=== PATIENT | female | born 1970 | race Caucasian/White ===

== ENCOUNTER → 2018-01-16 | Outpatient (CLI) | payer OTHER ==
[~2018-01-16] MED LIST: ALBUAER19 INH; BUPR-79 PO; CITA40TA12 PO; FLUT0.15 NAE; FLVHFA110 INH; LEVO1IUD2 PV; MTR600X PO; ONDA4TAB65 PO; OXYC5TAB PO; PRLSR20 PO
--- NOTE | 2018-01-16 09:29 | DIAGNOSTIC IMAGING REPORT ---
L SHOULDER MIN 2 VIEWS ROUTINE CLINICAL HISTORY: L SHOULDER DO TO FAL trauma. Pain. COMPARISON: None. DISCUSSION: The bones and joint spaces appear intact. There is no evidence of fracture, dislocation or bony disease. There is no evidence for soft tissue swelling. IMPRESSION: Negative study. The above report was generated using voice recognition software. It may contain grammatical, syntax or spelling errors. Electronically signed by: Yusuf Medeiros M.D. 01/16/2018 9:28 AM Dictated Date/Time: 01/16/2018 9:27 AM
--- NOTE | 2018-01-16 09:29 | DIAGNOSTIC IMAGING REPORT ---
R KNEE 1 OR 2 VIEWS ROUTINE CLINICAL HISTORY: R KNEE PAIN DO TO FALL trauma. Pain. COMPARISON: None. DISCUSSION: The bones and joint spaces appear intact. There is no evidence of fracture, dislocation or bony disease. There is no evidence for soft tissue swelling. IMPRESSION: Negative study. The above report was generated using voice recognition software. It may contain grammatical, syntax or spelling errors. Electronically signed by: Yusuf Medeiros M.D. 01/16/2018 9:28 AM Dictated Date/Time: 01/16/2018 9:28 AM
--- NOTE | 2018-01-16 09:30 | DIAGNOSTIC IMAGING REPORT ---
THORACIC SPINE 3 VIEWS ROUTINE HISTORY: Trauma. Pain. RIGHT KNEE AND L SHOULDER PAIN DO TO FALL COMPARISON: None. FINDINGS: There is no fracture. No subluxation. Mild degenerative disc change IMPRESSION: Mild degenerative disc change. No acute process. The above report was generated using voice recognition software. It may contain grammatical, syntax or spelling errors. Electronically signed by: Yusuf Medeiros M.D. 01/16/2018 9:29 AM Dictated Date/Time: 01/16/2018 9:28 AM
== END | disposition home or self-care (01) ==
LOC: C.LAB1850 09:08
PROVIDERS: ATTEND Nurse Practitioner Family
DX: M25.561 Pain in right knee (principal); M25.511 Pain in right shoulder; M54.6 Pain in thoracic spine; W19.XXXA Unspecified fall, initial encounter

== ENCOUNTER → 2018-02-06 | Outpatient (CLI) | payer OTHER ==
--- NOTE | 2018-02-06 07:15 | DIAGNOSTIC IMAGING REPORT ---
R LOWER EXT JOINT WITHOUT CLINICAL HISTORY: R KNEE PAIN AFTER WORK RELATED FALL TECHNIQUE: Multiaxial MRI acquisition COMPARISON STUDY: None FINDINGS: Prepatellar soft tissue edema. Signal characteristics of the osseous structures are unremarkable throughout. No significant joint effusion. Anterior and posterior cruciate are normal. Collateral ligament are intact. Patellofemoral joint appears to be unremarkable. Patellar retinaculum are intact. The menisci shows a normal configuration and signal character of both medial as well as lateral meniscus. There is no popliteal cyst. IMPRESSION: Prepatellar soft tissue edema. Otherwise negative study. The above report was generated using voice recognition software. It may contain grammatical, syntax or spelling errors. Electronically signed by: Yusuf Medeiros M.D. 02/06/2018 7:14 AM Dictated Date/Time: 02/06/2018 7:08 AM
== END | disposition home or self-care (01) ==
LOC: C.MRI 05:58
PROVIDERS: ATTEND Nurse Practitioner Family
DX: M25.561 Pain in right knee (principal); W19.XXXA Unspecified fall, initial encounter; Y99.0 Civilian activity done for income or pay

== ENCOUNTER 2021-06-25 05:22 | Inpatient (IN) ==
--- NOTE | 2021-06-08 11:32 | PAT Medication Instructions ---
Medication Instructions Date of Service June 08, 2021 Home Medications albuterol sulfate 1 - 2 inh INHALATION QID PRN omeprazole 20 mg PO QAM docusate sodium [Stool Softener] 100 mg PO BID PRN Vitamin B12 1 tab PO HS black cohosh 400 mg PO HS diphenhydramine HCl [Benadryl] 25 mg PO HS fluticasone propionate [Flonase] 2 spray INTRANASAL HS PRN ibuprofen 800 mg PO Q6H PRN meloxicam 15 mg PO HS ondansetron HCl [Zofran] 4 mg PO Q6H PRN pregabalin [Lyrica] 25 mg PO HS venlafaxine 37.5 mg PO HS ASK your surgeon for instructions ibuprofen 800 mg PO Q6H PRN meloxicam 15 mg PO HS STOP taking 2 weeks before surgery black cohosh 400 mg PO HS DO NOT take the morning of surgery docusate sodium [Stool Softener] 100 mg PO BID PRN Take morning of surgery With a small sip of water, OTHERWISE NOTHING TO EAT OR DRINK AFTER MIDNIGHT: albuterol sulfate 1 - 2 inh INHALATION QID PRN (use if needed; please bring with you to hospital day of surgery if possible) omeprazole 20 mg PO QAM ondansetron HCl [Zofran] 4 mg PO Q6H PRN (if needed) Take evening before surgery albuterol sulfate 1 - 2 inh INHALATION QID PRN (if needed) omeprazole 20 mg PO QAM docusate sodium [Stool Softener] 100 mg PO BID PRN (if needed) Vitamin B12 1 tab PO HS diphenhydramine HCl [Benadryl] 25 mg PO HS fluticasone propionate [Flonase] 2 spray INTRANASAL HS PRN (if needed) ondansetron HCl [Zofran] 4 mg PO Q6H PRN (if needed) pregabalin [Lyrica] 25 mg PO HS venlafaxine 37.5 mg PO HS Other Notes If you have any questions please call us at [phone] or [phone] or [phone] or [phone]
--- NOTE | 2021-06-12 11:45 | Anesthesiology Consultation ---
Date of Service June 12, 2021 Assessment & Plan (1) Encounter for pre-operative examination: Chart Review Chart Review: Acceptable Risk for Surgery (pending preop Covid testing results ) and Patient seen in Pre Admission Testing Per [facility] appointment 06/12/2021, pt resides and works mostly in [facility]. Works one day a week in [place]. Works in office alone. Wears mask per CDC guidelines- does wear mask in [employer]. Patient has NOT vaccinated for Covid. No known Covid infection in the past 90 days. No known Covid positive contacts or Covid related symptoms. Preop Covid testing scheduled 06/22/21= will await results. Educated on importance of self quarantining, social distancing and wearing mask in public both for the patient after Covid testing done Teaching & Discussion Pre-Anesthesia Teaching/Discussion Notes: Instructed NPO after midnight before surgery,except medications with 15 cc of water. Medication instructions prov ided according to the [facility] guidelines. History Surgery Operation Date: 06/25/21 07:45 Proposed Procedures p L4-L5 Decompression and Fusion, L5-S1 Hardware Removal, Spinal Cord Monitoring - Jeremy Morgan DO Height/Weight Height: 5 ft 7 in Weight: 72.8 kg Allergies Allergy/AdvReac Type Severity Reaction Status Date / Time latex Allergy Mild ITCHY Verified 06/08/21 08:01 HANDS WITH GLOVES gluten Allergy Unknown Gastrointestinal Verified 06/08/21 08:01 Upset morphine AdvReac Intermediate SEVERE N/V Verified 06/08/21 07:59 codeine AdvReac Mild N/V Verified 06/08/21 07:59 Medications Home Medications Medication Instructions Recorded Confirmed Last Taken albuterol sulfate 1 - 2 inh INHALATION QID PRN 09/29/19 06/08/21 09/30/19 03:00 omeprazole 20 mg PO QAM 09/29/19 06/08/21 09/29/19 20:00 docusate sodium [Stool Softener] 100 mg PO BID PRN 09/30/19 06/08/21 09/23/19 08:00 Vitamin B12 1 tab PO HS 06/08/21 06/08/21 Unknown black cohosh 400 mg PO HS 06/08/21 06/08/21 Unknown diphenhydramine HCl [Benadryl] 25 mg PO HS 06/08/21 06/08/21 Unknown fluticasone propionate [Flonase] 2 spray INTRANASAL HS PRN 06/08/21 06/08/21 Unknown ibuprofen 800 mg PO Q6H PRN 06/08/21 06/08/21 Unknown meloxicam 15 mg PO HS 06/08/21 06/08/21 Unknown ondansetron HCl [Zofran] 4 mg PO Q6H PRN 06/08/21 06/08/21 Unknown pregabalin [Lyrica] 25 mg PO HS 06/08/21 06/08/21 Unknown venlafaxine 37.5 mg PO HS 06/08/21 06/08/21 Unknown Past Medical History Medical History (Updated 06/12/21 @ 17:13 by Brittney Yanes PA-C) Anemia HX OF No iron supplements or blood tranfusion Asthma USES INHALER 2-3 X A WEEK Stable breathing Cancer BASAL CELL NOSE Cardiac murmur No murmur noted on 06/12/21 PAT exam No significant valve issues on 08/23/20 stress ECHO GERD (gastroesophageal reflux disease) Well controlle and stable History of anxiety History of herniated intervertebral disc History of IBS Migraine Neuropathy Peripheral neuropathy - L>R Exercise / Class Metabolic Activity II 4-5 Yardwork/Stairs/Walk up hill (one flight of stairs - no chest pain or SOB ) Past Family History Family History Father Family history of diabetes mellitus Family history of reaction to anesthesia SLOW TO WAKE UP Past Surgical History Surgical History Fusion of spine LUMBAR H/O foot surgery LEFT HAMMER TOE SURGERY History of breast biopsy History of cholecystectomy History of colonoscopy History of dilatation and curettage History of esophagogastroduodenoscopy (EGD) History of hysterectomy Nausea and vomiting after administration of anesthetic agent [place] teeth removed Past Anesthesia History No Hx of Anesthesia Complications (with exception PONV ) and No Family Hx of Anesthesia Complications (with exception to father- slow to wake- no reintubation or ICU stay ) History of PONV History of PONV (usually needs pred-medicated with IV anti nausea meds ) and Hx of Motion Sickness (mild ) Social History Smoking Status: Current every day smoker tobacco type: cigarettes Smoking cigarettes per day: 10 CIGS A DAY Do You Dip or Chew Tobacco: No Hx Alcohol Use: Yes Alcohol type: hard liquor alcohol intake frequency: a few times a month Alcohol Intake Frequency Comment: RARELY Hx Substance Use: No Review of Systems Nasal congestion secondary to allergies- slight cough Patient denies chest pain, shortness of breath at rest, cough, wheezing, palpitations. No hx of seizures, stroke, NV, apnea/snoring. No hx of blood clots. Physical Exam Vital Signs VITALS BP 117/76 P 70 TEMP 98.3 SP02 98% RESP 16 Constitutional no acute distress ENMT Mouth: no TMJ clicking Thyromental Distance: > or= 3.5 Finger Breadths (3.5) Mallampati Class: I Missing molars Neck neck extension not limited (pt does dizziness with neck extension ) Respiratory normal respiratory effort; no respiratory distress Auscultation: lungs clear to auscultation bilaterally and + wheezes (slight in left upper lobe ) Cardiovascular Rate/Rhythm: regular rate and regular rhythm Heart Sounds: no murmur Vessels: no carotid bruit Musculoskeletal Spine: no pain with cervical ROM Extremities: extremities normal to inspection Psychiatric Orientation: alert Lab Results Anesthesia Preop Results Results Anesthesia Widget: WBC 8.22 K/uL (4.8-10.8) 06/12/21 Hgb 11.7 g/dL (12.0-16.0) L 06/12/21 Hct 34.0 % (37-47) L 06/12/21 Plt 356 K/uL (130-400) 06/12/21 Na 138 mmol/L (136-145) 06/12/21 K 4.5 mmol/L (3.5-5.1) 06/12/21 Cl 108 mmol/L (98-107) H 06/12/21 CO2 26 mmol/L (21-32) 06/12/21 BUN 13 mg/dl (7-18) 06/12/21 Creat 0.75 mg/dl (0.6-1.2) 06/12/21 Glucose Level 92 mg/dl (70-99) 06/12/21 PT 9.3 Seconds (9.0-12.0) 06/12/21 PTT 25.7 Seconds (21.0-31.0) 06/12/21 INR 0.9 (0.9-1.1) 06/12/21 Urine Color Yellow 06/12/21 Urine Appearance Clear (Clear) 06/12/21 Urine pH 7.0 (4.5-7.5) 06/12/21 Urine Specific [place] 1.010 (1.000-1.030) 06/12/21 Urine Protein Negative (Negative) 06/12/21 Urine Glucose (UA) Negative (Negative) 06/12/21 Urine Ketones Negative (Negative) 06/12/21 Urine Blood Negative (Negative) 06/12/21 Urine Nitrite Negative (Negative) 06/12/21 Urine Bilirubin Negative (Negative) 06/12/21 Urine Urobilinogen Negative (Negative) 06/12/21 Urine Leukocyte Esterase Negative (Negative) 06/12/21 Blood Type A Negative 06/12/21 Antibody Screen NEGATIVE 06/12/21 Lab Comments: Anemia chronic and stable from 2019 Testing Electrocardiogram Date: 08/09/20 Findings: + SB @ (53bpm) Otherwise normal EKG per cardio. Chest X-Ray Date: 02/01/21 Findings: + NAD Stress Test Date: 08/23/20 Type: exercise (Echo) Resting EF: 55 to 59% Resting LV Function: normal Resting RWMA: + none Valvular Disease: no significant valvular disease Stress echo was negative for inducible ischemia. LV ejection fraction increases normally with stress. LV wall motion with stress is normal. Stress EKG response showed no evidence of ischemia. Exercise test was terminated per patient request due to fatigue and an appropriate degree of shortness of breath for the level of exercise achieved. The patient reported 4/10 severity chest tightness early in stage III of exercise it did not progress with additional exercise and was felt to be atypical in character for angina Exercise capacity is above average with the patient achieving 11.7 METS.
[2021-06-25] MEDS ORDERED: CeleBREX 200 MG CAP PO SCH (06:00)
[2021-06-25] MEDS ORDERED: GABAPENTIN 900 MG DOSE PO SCH (06:00)
[2021-06-25] MEDS ORDERED: ceFAZolin 1000MG 1,000 MG/7.5 ML SYR IV SCH (06:00)
[2021-06-25] MEDS ORDERED: ACETAMINOPHEN 500 MG TAB PO SCH (06:00)
[2021-06-25] MEDS ORDERED: LR 15ML/HR IV SCH (06:00)
[2021-06-25] MEDS ORDERED: GLYCOPYRROLATE 0.2 MG/ML VIAL ONE (06:32)
[2021-06-25] MEDS ORDERED: fentaNYL citrate 100 MCG/2 ML VIAL ONE (06:32)
[2021-06-25] MEDS ORDERED: DEXAMETHASONE SOD INJ 4 MG/ML VIAL ONE (06:32)
[2021-06-25] MEDS ORDERED: NEOSTIGMINE METHYLSULFATE 1 MG/ML 10ML VIAL ONE (06:32)
[2021-06-25] MEDS ORDERED: ONDANSETRON INJ 2 MG/ML 2 ML VIAL ONE (06:32)
[2021-06-25] MEDS ORDERED: PROPOFOL IV EMULSION 10 MG/ML 20 ML VIAL IV ONE (06:32)
[2021-06-25] MEDS ORDERED: ROCURONIUM BROMIDE 10 MG/ML 5 ML VIAL IV ONE (06:32)
[2021-06-25] MEDS ORDERED: BUPIVACAINE/EPINEPHRINE 0.5% MPF 1:200,000 30 ML VIAL ONE (07:00)
--- NOTE | 2021-06-25 07:30 | History & Physical Bridge Note ---
Date of Service June 25, 2021 History & Physical Bridge Note I have examined the patient, reviewed the History & Physical and in the interval since the performance of the History & Physical I have noted the following changes of clinical significance: no changes noted
--- NOTE | 2021-06-25 07:31 | History & Physical Report ---
Date of Service June 25, 2021 Assessment & Plan (1) Neurogenic claudication due to lumbar spinal stenosis: Plan: Lumbar decompression fusion L4-L5 with hardware removal L5-S1 History of Present Illness Chief Complaint: Back and leg pain Primary Care Provider: Reji Holt Is a 42-year-old female presents with chronic persistent back and leg pain. Failing course of nonoperative care is here for surgical invention. Home Medications Medication Instructions Recorded Confirmed Type albuterol sulfate 90 mcg/actuation 1 - 2 inh INHALATION QID PRN 09/29/19 06/25/21 History breath activated powder inhaler omeprazole 20 mg tablet,delayed 20 mg PO QAM 09/29/19 06/25/21 History release docusate sodium 100 mg capsule 100 mg PO BID PRN 09/30/19 06/25/21 History (Stool Softener) Vitamin B12 1 tab PO HS 06/08/21 06/25/21 History black cohosh 200 mg capsule 400 mg PO HS 06/08/21 06/25/21 History diphenhydramine HCl 25 mg capsule 25 mg PO HS 06/08/21 06/25/21 History (Benadryl) fluticasone propionate 50 2 spray INTRANASAL HS PRN 06/08/21 06/25/21 History mcg/actuation nasal spray,suspension ibuprofen 200 mg capsule 800 mg PO Q6H PRN 06/08/21 06/25/21 History meloxicam 15 mg tablet 15 mg PO HS 06/08/21 06/25/21 History ondansetron HCl 4 mg tablet 4 mg PO Q6H PRN 06/08/21 06/25/21 History (Zofran) pregabalin 25 mg capsule (Lyrica) 25 mg PO HS 06/08/21 06/25/21 History venlafaxine 37.5 mg tablet 37.5 mg PO HS 06/08/21 06/25/21 History Past Med/Surg History Social History Smoking Status: Current every day smoker Cigarettes Per Day: 10 CIGS A DAY; Second Hand Exposure: Yes (PARENTS SMOKED WHEN SHE WAS A CHILD); Do You Dip or Chew Tobacco: No; Hx Alcohol Use: Yes Alcohol type: hard liquor Hx Substance Use: No Preferred Language: Faroese Communication Ability: Effective Rehab Aide Required: No Beliefs That Will Affect Care: None Current Living Situation: Significant Other current occupational status: employed current occupation: [employer] Other Information That Helps Us Care for You: No Feels Safe at Home: Yes Safety Concerns: Feels Safe At This Time Assistive Devices: Glasses Physical Exam Physical Exam: Patient is alert and oriented Heart regular rhythm Lungs clear to auscultation Results & Data ([facility]) Vital Signs (Past 12 Hours) Vital Signs Temp Pulse Resp BP Pulse Ox 06/25/21 06:02 36.6 C 67 20 113/65 97
[2021-06-25] MEDS ORDERED: ePHEDrine sulfate 50 MG/ML AMP IV PRN (08:08)
[2021-06-25] MEDS ORDERED: ATROPINE SULFATE 0.1 MG/ML 10ML SYR IV PRN (08:08)
[2021-06-25] MEDS ORDERED: ONDANSETRON INJ 2 MG/ML 2 ML VIAL IV PRN ×2 (08:08→09:25)
[2021-06-25] MEDS ORDERED: HYDROmorphone INJ 2 MG/ML SYR/VIAL IV PRN (08:08)
[2021-06-25] MEDS ORDERED: PROMETHAZINE HCL 12.5 MG in SODIUM CHLORIDE 0.9% 50 ML IV PRN ×2 (08:08→09:25)
[2021-06-25] MEDS ORDERED: ALBUTEROL HFA INHALER 8.5 GM ONE (08:13)
[2021-06-25] MEDS ORDERED: PHENYLEPHRINE 100MCG/ML 5ML SYR ONE (08:21)
[2021-06-25] MEDS ORDERED: FLOSEAL HEMOSTATIC MATRIX 10ML TOP ONE (08:37)
[2021-06-25] MEDS ORDERED: diphenhydrAMINE Capsule 25 MG CAP PO PRN (09:25)
[2021-06-25] MEDS ORDERED: HYDROmorphone INJ 1 MG/ML SYRINGE IV PRN (09:25)
[2021-06-25] MEDS ORDERED: HYDROmorphone INJ 0.5 MG/0.5 ML SYR IV PRN (09:25)
[2021-06-25] MEDS ORDERED: NALOXONE HCL 0.4 MG/1 ML VIAL/CARP IV PRN (09:25)
[2021-06-25] MEDS ORDERED: ACETAMINOPHEN 1,000 MG/100 ML VIAL IV PRN (09:25)
[2021-06-25] MEDS ORDERED: LORazepam 0.5 MG TAB PO PRN (09:25)
[2021-06-25] MEDS ORDERED: ACETAMINOPHEN 500 MG TAB PO PRN (09:25)
[2021-06-25] MEDS ORDERED: SOD PHOSPHATE/SOD BIPHOSPHATE ENEMA 132 ML BTL PR PRN (09:25)
[2021-06-25] MEDS ORDERED: FAMOTIDINE 20 MG TAB PO PRN (09:25)
[2021-06-25] MEDS ORDERED: hydrOXYzine HCl 25 MG TAB PO PRN (09:25)
[2021-06-25] MEDS ORDERED: ONDANSETRON 4 MG OD TAB PO PRN ×2 (09:25→10:14)
[2021-06-25] MEDS ORDERED: ALUMINUM/MAGNESIUM SUSP 30 ML UDC PO PRN (09:25)
[2021-06-25] MEDS ORDERED: MAGNESIUM HYDROXIDE SUSP 30 ML UDC PO PRN (09:25)
[2021-06-25] MEDS ORDERED: DO NOT ADMINISTER PNEUMOCOCCAL VACCINE PRN (09:25)
[2021-06-25] MEDS ORDERED: DO NOT ADMINISTER FLU VACCINE PRN (09:25)
[2021-06-25] MEDS ORDERED: LORazepam 0.5 MG/1 ML VIAL IV PRN (09:25)
[2021-06-25] MEDS ORDERED: traMADol HCL 50 MG TABLET PO PRN (09:25)
[2021-06-25] MEDS ORDERED: METOCLOPRAMIDE HCL INJ 5 MG/ML 2 ML VIAL IV PRN (09:25)
--- NOTE | 2021-06-25 09:25 | Operative Report ---
Post Operative Report Pre & Post Diagnosis Operation Date: 06/25/21 07:45 Pre-Op Diagnosis: Intervertebral Disc Disorders with Radiculopathy Post-Op Diagnosis: Intervertebral Disc Disorders with Radiculopathy I identified the patient and participated in the time-out.: Yes Procedure Operation Date: 06/25/21 07:45 Actual Procedures #1 Removal of posterior instrumentation L5-S1. #2 exploration of fusion L5-S1. #3 lumbar decompression with bilateral medial facetectomies and foraminotomies L4-L5. #4 posterior spinal fusion L4-5. #5 patient posterior instrumentation L4-5. #6 interbody fusion L4-L5. #7 placement peek cage 12 x 22 mm at L4-5. #8 placement locally harvested morselized autograft in the posterior lateral gutters. #9 placement of I factor with vitoss in the interbody space and posterior lateral gutters. Surgeon Jeremy Morgan, Cost Accounting Analyst Joanna Lowery Estimated Blood Loss 100 Findings Consistent with Post-Op Diagnosis Specimens None Indications This is a 50-year-old female well-known to me the presents with above-mentioned diagnosis after failing course of nonoperative care is here for the above-ment ioned procedure. Description of Procedure Patient met with identified informed consent obtained. Patient was then taken to the operative suite underwent ablation placed in a prone position on a Kiko table top Cl frame. All bony prominences well-padded eyes inspected to ensure no external pressure placed upon them. This point the lumbar spine was prepped and draped in a sterile fashion. Sharp dissection with the assistance of Bovie cartilage from down to and exposing the lamina and transverse processes of L4 and the instrumentation L5 and S1 levels bilaterally. And then proceeded move the hardware bilaterally with the fusion mass noting it to be intact. Then performed a complete laminectomy of L4 including bilateral medial facetectomies and foraminotomies addressing all neural compression. Pedicle screws were then placed in L4 and L5 bilaterally with assistance of fluoroscopy and appropriate sized yodit placed. By way of a transforaminal approach on the left complete discectomy was performed endplates curetted to subcortically bone and a 10 x 22 mm peek cage filled with I factor tapped in position. Rods then compressed locked into final position bilaterally. The transverse processes of L4 and L5 burred to subcortical bleeding bone. I factor combined with Vitoss locally harvested morselized autograft was placed in the posterior gutters. 15 round DELFINO drain inserted. Incision was then closed with 1 Vicryl fascia 2-0 Vicryl subcutaneously and 4 Monocryl for final skin closure. Steri-Strip sterile dressings placed. Patient waken taken to PACU stable condition. Please note spinal cord monitoring was utilized at the procedure no changes noted. Lastly Joanna Lowery was present at the entire surgery and while the patient positioning complex portions of the surgery and vascular closure. I attest to the content of the Intraoperative Record and any orders documented therein. Any exceptions are noted below.
[2021-06-25] MEDS ORDERED: DOCUSATE SODIUM 100 MG CAP PO PRN (09:28)
[2021-06-25] MEDS ORDERED: FLUTICASONE PROPIONATE NA SPR 16 GM BTL PRN (09:28)
[2021-06-25] MEDS: fentaNYL citrate 100 MCG/2 ML VIAL IV PRN ×2 (09:46→09:56)
--- NOTE | 2021-06-25 10:04 | Fluoroscopy Report ---
FL lumbar spine 2-3V CLINICAL HISTORY: L4-L5 DECOMPRESSION AND FUSION L5-S1 HW REMOVAL COMPARISON STUDY: None. FLUOROSCOPY TIME: 13 seconds. FINDINGS: 2 fluoroscopic spot images of the lumbar spine demonstrates posterior decompression and fus ion at L4-5 with pedicle screws and rods. The hardware appears intact. Disc spacers are noted at L4-5 and L5-S1. IMPRESSION: Fluoroscopy provided for L4-5 posterior decompression and fusion ACT 112: Negative or not required by law. Electronically signed by: Jermaine Dunn M.D. 06/25/2021 10:02 AM
--- NOTE | 2021-06-25 10:34 | Anesthesiology Progress Note ---
Date of Service June 25, 2021 Anesthesia Post Procedure Vital Signs Vital Signs: Temp Pulse Pulse Resp BP Pulse Ox 06/25/21 10:15 36.1 C L 53 L 12 105/77 100 06/25/21 10:10 57 L 12 112/65 100 06/25/21 10:00 62 12 116/67 100 06/25/21 09:50 65 14 110/65 100 06/25/21 09:40 71 14 121/66 06/25/21 09:38 36.1 C L 86 14 130/73 06/25/21 06:02 36.6 C 67 20 113/65 97 Pain Intensity Lower Back: Pain Intensity: 3 Transfer of Care Handoff Completed per policy Notes Mental Status: alert / awake / arousable and participated in evaluation Patient Amnestic to Procedure: Yes Nausea / Vomiting: improving with treatment Pain: adequately controlled Airway Patency, RR, SpO2: stable & adequate BP & HR: stable & adequate Hydration State: stable & adequate Anesthetic Complications: no major complications apparent and Pt Satisfied with anesthetic care
[2021-06-25] MEDS: KETOROLAC TROMETHAMINE 15 MG/ML VIAL IV SCH ×2 (13:17→19:42)
[2021-06-25] MEDS: oxyCODONE HCL IR 5 MG TAB (IMMEDIATE RELEASE) PO PRN ×2 (13:17→17:24)
[2021-06-25] MEDS: LACTATED RINGER'S 1,000 ML IV SCH ×3 (13:20→23:04)
[2021-06-25] MEDS: ceFAZolin 2000MG 2,000 MG/15 ML SYR IV SCH ×2 (15:56→23:04)
[2021-06-25] MEDS: diphenhydrAMINE Capsule 25 MG CAP PO SCH (19:41)
[2021-06-25] MEDS: DOCUSATE SODIUM/SENNA 50/8.6MG TAB PO SCH (19:42)
[2021-06-25] MEDS: VENLAFAXINE HCL 37.5 MG TAB PO SCH (19:42)
[2021-06-25] MEDS: CYANOCOBALAMIN (VITAMIN B-12) 100 MCG TABLET PO SCH (19:42)
[2021-06-25] MEDS: PREGABALIN 25 MG CAP PO SCH (20:59)
[2021-06-26] MEDS: KETOROLAC TROMETHAMINE 15 MG/ML VIAL IV SCH ×2 (01:59→09:25)
[2021-06-26] MEDS: POLYETHYLENE (MIRALAX) 17 GM PACK PO SCH ×4 (05:13→22:54)
[2021-06-26 06:44] LABS: Basophils # (auto) 0.02 K/uL (0-0.2); Basophils % (auto) 0.2 %; Hematocrit (blood only) 25.8 % (37-47); Hemoglobin 8.6 g/dL (12.0-16.0); Immature Granulocytes # (auto) 0.02 K/uL (0.00-0.02); Immature Granulocytes % (auto) 0.2 %; Lymphocytes % (auto) 31.1 %; Mean Corpuscular Hemoglobin 31.4 pg (25-34); Mean Corpuscular Hgb Conc 33.3 g/dL (32-36); Mean Corpuscular Volume 94.2 fL (80-100); Monocytes # (auto) 0.82 K/uL (0.11-0.59); Monocytes % (auto) 8.2 %; Neutrophils % (auto) 58.3 %; Platelet Count 261 K/uL (130-400); RDW Coefficient of Variation 13.7 % (11.5-14.5); RDW Standard Deviation 47.8 fL (36.4-46.3); Red Blood Count 2.74 M/uL (4.2-5.4); White Blood Count 9.96 K/uL (4.8-10.8)
[2021-06-26 07:10] LABS: BUN Creatinine Ratio 13.7 (10-20); Calcium 8.4 mg/dl (8.5-10.1); Est GFR (African American) 119.3 ml/min; Est GFR (Non-African American) 102.9 ml/min; Potassium 3.7 mmol/L (3.5-5.1)
[2021-06-26] MEDS: PANTOprazole 40 MG TAB PO SCH (09:25)
--- NOTE | 2021-06-26 10:25 | Orthopedic Progress Note ---
Date of Service June 26, 2021 Assessment & Plan (1) Neurogenic claudication due to lumbar spinal stenosis: Plan: This time we will continue physical therapy monitor DELFINO operatively discharge home in the next few days. Admission and Anticipated Discharge Date Admission Date: June 25, 2021 Subjective Back pain controlled leg symptoms markedly improved Physical Exam Physical Exam: Patient has good strength testing appears comfortable. Results & Data ([facility]) Vital Signs (Past 12 Hours) Vital Signs Temp Pulse Resp BP Pulse Ox 06/26/21 07:44 36.7 C 60 17 108/64 99 06/26/21 02:02 36.7 C 56 L 16 109/66 96 06/25/21 23:07 36.7 C 67 16 96/59 L 98
[2021-06-26] MEDS: oxyCODONE HCL IR 5 MG TAB (IMMEDIATE RELEASE) PO PRN (17:02)
[2021-06-26] MEDS: PREGABALIN 25 MG CAP PO SCH (19:58)
[2021-06-26] MEDS: DOCUSATE SODIUM/SENNA 50/8.6MG TAB PO SCH (19:58)
[2021-06-26] MEDS: CYANOCOBALAMIN (VITAMIN B-12) 100 MCG TABLET PO SCH (19:58)
[2021-06-26] MEDS: VENLAFAXINE HCL 37.5 MG TAB PO SCH (19:58)
[2021-06-26] MEDS: diphenhydrAMINE Capsule 25 MG CAP PO SCH (19:59)
[2021-06-27] MEDS: POLYETHYLENE (MIRALAX) 17 GM PACK PO SCH (04:46)
[2021-06-27] MEDS: oxyCODONE HCL IR 5 MG TAB (IMMEDIATE RELEASE) PO PRN (04:49)
[2021-06-27] MEDS ORDERED: bisacodyL 10 MG SUPP PR PRN (08:00)
[2021-06-27] MEDS: PANTOprazole 40 MG TAB PO SCH (08:27)
[2021-06-27] MEDS ORDERED: dexAMETHasone 8 MG in SYRINGE 0 ML IV SCH (09:00)
--- NOTE | 2021-06-27 10:13 | Discharge Summary ---
Date of Service June 27, 2021 Admission HPI Per Admitting Provider Is a 42-year-old female presents with chronic persistent back and leg pain. Failing course of nonoperative care is here for surgical invention. Principal Diagnosis Lumbar spinal stenosis with neurogenic claudication Discharge Data Allergies Allergy/AdvReac Type Severity Reaction Status Date / Time latex Allergy Mild ITCHY Verified 06/25/21 05:48 HANDS WITH GLOVES gluten Allergy Unknown Gastrointestinal Verified 06/25/21 05:48 Upset morphine AdvReac Intermediate SEVERE N/V Verified 06/25/21 05:48 codeine AdvReac Mild N/V Verified 06/25/21 05:48 Procedures Performed Operation Date: 06/25/21 07:45 Actual Procedures p L4-L5 Decompression and Fusion, Spinal Cord Monitoring(Not Applicable) - Jeremy Morgan DO s L5-S1 Hardware Removal(Not Applicable) - Jeremy Morgan DO Ordered Studies 06/25/21 07:45 [place] lumbar spine 2-3V Routine Hospital Course (1) Neurogenic claudication due to lumbar spinal stenosis: Patient with lumbar decompression fusion trial exhausting orthopedic for properly. Postop day 1 is she was up and ambulating well. On postop day or 2 DELFINO drain decreased appropriately. Pain well controlled. Excellent discharge home. Discharge orders instructions from the chart for further review. Total Time Total Time Spent Total Time Spent (In Minutes): 20 minutes Discharge Plan Discharge Items Patient Disposition: Home - Self-Care Reason For Visit: Intervertebral Disc Disorders with Radiculopathy Discharge Diagnosis: Lumbar spinal stenosis with radiculopathy Activity: As commented below Non-emergency contact: Primary Care Provider Call non-emergency contact if: you have any medication questions Follow-up/Referrals: Reji Holt DO [Primary Care Provider] - Diet: Regular Addtl Attending Provider Instructions: ACTIVITY RECOMMENDATIONS: SELF CARE INSTRUCTIONS AFTER THORACIC/LUMBAR FUSIONS 1. You may walk to your tolerance. It is good exercise for your legs and back. Expect some back and intermittent leg aches and pains. 2. You may perform "counter-top" level activities (make a sandwich, janes with a project, etc.). 3. No bending or lifting of more than 10 pounds or back twisting of any nature (roll like a log when turning in bed). 4. You may ride in a car for 20-30 minutes at a time. No driving until after your first visit with your doctor. 5. Frequent changes of position and restricting sitting to 30 minutes at a time will help limit the amount of back spasms and stiffness you may experience. 6. You may discontinue the use of ambulatory aids (cane, crutches, etc.) once your strength and confidence allow. 7. You may scheduling specialist the shower and let water strike your incision when you arrive home at least once daily. Do not take a tub bath, sit in a hot tub or go into a swimming pool until after your first recheck in the office. SPECIAL CARE INSTRUCTIONS: VERY IMPORTANT TO READ AND REVIEW A. Your surgical incision has been closed with a cosmetic suture under the skin that will dissolve in about 6 weeks. In 14 days, you can use a pair of clean scissors and cut the suture that is left outside of the skin at the ends of your incision. 1. The small skin tapes can be removed 7 days after surgery if they have not fallen off by that point. 2. You may keep the wound open to air as much as possible to promote healing after post-op day number 5 unless told otherwise by your doctor. 3. If you think the wound looks like it is becoming infected (redness or wo rsening drainage) and/or you are experiencing fever, chill or worsening back pain and muscle spasms, contact the office so that we may evaluate you as soon as possible. B. Complications are uncommon, but please contact us if you have any signs or symptoms of: 1. wound infection (fever higher than 102.5 degrees F, redness, separation of wound, drainage, or increasing pain from the incision) 2. blood clots in legs (pain, swelling, redness and warmth in legs) 3. urinary tract infection (fever higher than 102.5 degrees F, burning upon urination or increased frequency of urination) 4. nerve problems (inability to walk on your toes or heels, numbness, loss of bowel or bladder control) 5. any other symptoms that concern you C. Please call the office at if you have any concerns or questions about your operation or recovery. D. No smoking! Smoking drastically decreases the chance of a solid fusion. E. Do not take any anti-inflammatory medications (Indocin, Advil, Motrin, Aspirin, Naprosyn, etc.) as these may inhibit the chance of a solid fusion. Tylenol is okay to take for pain. MANAGING PAIN AFTER SPINAL SURGERY 1. Narcotic medication is intended for short-term use and will be provided for surgical pain. Surgical pain usually lasts for a period of 4-6 weeks. Narcotic medication includes Percocet, Vicodin, Darvocet, Tylenol #3 or Lortab. 2. Longer-term pain is more appropriately treated with non-narcotic medication such as Tylenol ES. 3. Muscle spasm is not appropriately treated with narcotics. Muscle relaxers such as Soma, Flexeril or Skelaxin can be used along with Tylenol ES. 4. Remember that we all live with some "aches and pains". This is not unusual or uncommon after an injury or as we get older. a. Back pain is expected and may include muscle spasms for 4 to 6 weeks after surgery. The pain should gradually improve. If the pain worsens for no apparent reason, please contact the office. b. Intermittent leg pain may also be experienced and should not be concerned about unless it worsens for no apparent reason. If so, please contact the office. 5. We will provide appropriate medication within the normal guidelines of their prescribed use. We will also be very cautious and aware of potential abuse and extended duration of patients' medication needs. a. Pain medications are for your comfort and to assist with sleep and rest so that the tissue can heal. They are not provided in order to return to normal activity and should not be used through the day. To do so or worsening pain at night can result from ongoing tissue damage and development of tolerance to the prescribed medicine. 6. Please allow 2-3 days to process refills. Prescriptions will not be mailed but must be picked up at the office. FOLLOW UP VISIT: Keep your scheduled follow-up appointment. Any questions, please call the office at . Pending Studies at Discharge: No Stand-Alone Forms: My [employer], Smoking Cessation Medications and PA Order Prescriptions: New tramadol 50 mg tablet 50 mg PO Q6H PRN (Reason: pain, moderate) Qty: 30 RF: 0 oxycodone 5 mg tablet 5 mg PO Q6H PRN (Reason: pain, severe) Qty: 30 RF: 0 oxycodone 5 mg tablet 5 mg PO Q6H PRN (Reason: pain, severe) Qty: 30 RF: 0 Continued omeprazole 20 mg Tablet,Delayed Release (Dr/Ec) 20 mg PO QAM RF: 0 albuterol sulfate 90 mcg/actuation Aerosol Powdr Breath Activated 1 - 2 inh INHALATION QID PRN (Reason: SHORT OF BREATH) RF: 0 docusate sodium [Stool Softener] 100 mg Capsule 100 mg PO BID PRN (Reason: Constipation) RF: 0 meloxicam 15 mg Tablet 15 mg PO HS RF: 0 venlafaxine 37.5 mg Tablet 37.5 mg PO HS RF: 0 black cohosh 200 mg Capsule 400 mg PO HS RF: 0 pregabalin [Lyrica] 25 mg Capsule 25 mg PO HS RF: 0 Vitamin B12 1 tab PO HS RF: 0 ondansetron HCl [Zofran] 4 mg Tablet 4 mg PO Q6H PRN (Reason: Nausea) RF: 0 diphenhydramine HCl [Benadryl] 25 mg Capsule 25 mg PO HS RF: 0 fluticasone propionate 50 mcg/actuation [place],Suspension 2 spray INTRANASAL HS PRN (Reason: Nasal Congestion) RF: 0 ibuprofen 200 mg Capsule 800 mg PO Q6H PRN (Reason: Pain) RF: 0 Discharge Orders: Discharge Order (Routine); Ordered 06/27/21 Ordered By: Jeremy Morgan Admission Data Admit Date/Time: 06/25/21 09:25 Attending Provider: Jeremy Morgan Admit Provider: Jeremy Morgan Primary Care Provider: Reji Holt
== END 2021-06-27 13:15 | disposition home or self-care (01) | DRG 455 ==
LOC: ASU 05:22 → 3E 09:25
DX: M54.16 Radiculopathy, lumbar region; Z20.822 Contact with and (suspected) exposure to COVID-19; F17.210 Nicotine dependence, cigarettes, uncomplicated; Z91.018 Allergy to other foods; M48.062 Spinal stenosis, lumbar region with neurogenic claudication; Z79.01 Long term (current) use of anticoagulants; Z79.899 Other long term (current) drug therapy; Z88.5 Allergy status to narcotic agent; Z91.040 Latex allergy status